=== PATIENT | male | born 1985 | race Two or more races ===

== ENCOUNTER 2024-01-09 18:02 | Emergency (ER) | payer OTHER ==
[~2024-01-09] VITALS: Ht 172.7 cm; Wt 86.0 kg
[~2024-01-09 18:02] MED LIST: NOCURR
[2024-01-09 19:53] VITALS: BP 158/84; PULSE 103; RESP 19; TEMP 98.2; O2SAT 98
[2024-01-09] MEDS: METHOCARBAMOL 500 MG TABLET PO ONE (22:36)
[2024-01-09] MEDS: HYDROCODONE/ACETAMINOPHEN 5-325 MG TABLET PO ONE (22:36)
[2024-01-09] MEDS: IBUPROFEN 600 MG TABLET PO ONE (22:36)
== END 2024-01-10 02:51 ==
LOC: EMS 18:02
DX: S06.0X0A Concussion without loss of consciousness, initial encounter (principal); S02.5XXA Fracture of tooth (traumatic), initial encounter for closed fracture; S93.402A Sprain of unspecified ligament of left ankle, initial encounter; S20.212A Contusion of left front wall of thorax, initial encounter; F12.90 Cannabis use, unspecified, uncomplicated; F17.210 Nicotine dependence, cigarettes, uncomplicated; Y04.8XXA Assault by other bodily force, initial encounter; Y93.89 Activity, other specified; Y92.89 Other specified places as the place of occurrence of the external cause; Y99.8 Other external cause status
CPT/HCPCS: 70450; 70486; 71101; 72125; 73503; 99284